=== PATIENT | male | born 1985 | race Caucasian/White ===

== ENCOUNTER 2019-12-21 14:52 | Inpatient (IN) ==
[2019-12-21 15:14] LABS: Microscopic, Urine URINE MICROSCOPIC (MICROSCOPIC)
--- NOTE | 2019-12-21 15:21 | Emergency Department Note ---
ED Disposition Clinical Impression: Severe sepsis, IV drug abuse Abscess of skin or subcutaneous tissue Qualifiers: Site of cutaneous abscess: extremity Site of cutaneous abscess of extremity: upper extremity Laterality: left Qualified Code(s): L02.414 - Cutaneous abscess of left upper limb Cellulitis Qualifiers: Site of cellulitis: extremity Site of cellulitis of extremity: upper extremity Laterality: left Qualified Code(s): L03.114 - Cellulitis of left upper limb Disposition: Admitted As Inpatient Condition on Discharge: Fair Instructions: DI for Skin Abscess Referrals: Ameya Hernandez [Primary Care Provider] - Time of Disposition: 16:51 - Critical Care Critical Care Time: No Attestation: On 12/21/19, the high probability of a clinically significant, sudden or life threatening deterioration of the following system(s) required my full and direct attention, intervention and personal management. The time I documented below is in addition to time spent performing reported procedures but includes the following listed in this critical care notation. Medical Decision Making - Joseph Inquiry Pt receiving controlled substance: No Vital Signs: 12/21/19 15:02 Temperature 98.2 F Temperature Source Oral Pulse Rate [Left Radial] 110 H Respiratory Rate 18 Blood Pressure [Right Arm] 131/68 Blood Pressure Mean [Right Arm] 89 Blood Pressure Position [Right Arm] Sitting 02 Sat by Pulse Oximetry 98 Oxygen Delivery Method Room Air - Lab Data Lab results reviewed: Yes: I reviewed the patient's lab results. Lab Results 12/21/19 14:57: Urine Color Yellow, Urine Appearance Clear, Urine pH 6.0, Ur Specific [place] <= 1.005, Urine Protein Negative, Urine Glucose (UA) Negative, Urine Ketones Negative, Urine Blood Trace-i, Urine Nitrate Negative, Urine Bilirubin Negative, Urine Urobilinogen 0.2, Ur Leukocyte Esterase Negative, Urine RBC Occasional, Urine WBC None, Ur Squamous Epith Cells Occasional, Urine Bacteria None 12/21/19 14:57: ESR 8 12/21/19 14:57: Troponin I < 0.01, C-Reactive Protein 45.1 H 12/21/19 14:57: Urine Opiates Screen Negative, Urine Methadone Screen Negative, Ur Barbituates Screen Negative, Ur Phencyclidine Scrn Negative, Ur Amphetamines Screen Negative, U Benzodiazepines Scrn Negative, Urine Cocaine Screen Negative, U Marijuana (THC) Screen Negative 12/21/19 15:05: WBC 15.6 H, RBC 4.70, Hgb 14.3, Hct 44.3, MCV 94.1 H, MCH 30.4, MCHC 32.3, RDW 14.1, Plt Count 762 H, MPV 7.9, Neut % (Auto) 80.6 H, Lymph % (Auto) 15.7, [place] % (Auto) 2.6, Eos % (Auto) 0.7, Baso % (Auto) 0.3, Neut # (Auto) 12.6 H, Lymph # (Auto) 2.5, [place] # (Auto) 0.4, Eos # (Auto) 0.1, Baso # (Auto) 0.0, Total Counted 100, Neutrophils % (Manual) 69, Lymphocytes % (Manual) 27, Atypical Lymphs % 2.0, Monocytes % (Manual) 2, Platelet Estimate Normal, RBC Morphology Normal 12/21/19 15:05: Sodium 133 L, Potassium 3.7, Chloride 93 L, Carbon Dioxide 27, Anion Gap 16.7 H, BUN 25 H, Creatinine 0.90, Estimated Creat Clear 109, Estimated GFR 95, Est GFR ( Amer) 116, Glucose 127 H, Calcium 9.4, Total Bilirubin 0.4, AST 46, ALT 73, Alkaline Phosphatase 218 H, Total Protein 9.1 H, Albumin 3.9, Globulin 5.2 H, Albumin/Globulin Ratio 0.8 L 12/21/19 15:05: Lactate 2.2 H Result diagrams: 12/21/19 15:05 12/21/19 15:05 Orders (Tests/Meds): ED MEDICATIONS Generic Name Dose Route Start Last Admin Trade Name Fausto PRN Reason Stop Dose Admin Sodium Chloride 1,000 mls @ 999 mls/hr 12/21/19 15:30 12/21/19 15:57 Sod Chlor 0.9% 1000ml Bag IV 12/21/19 16:30 999 mls/hr .Q1H1M BETTIE Administration Vancomycin HCl 1,000 mg/ 250 mls @ 125 mls/hr 12/21/19 15:34 12/21/19 15:57 Sodium Chloride IV 12/21/19 17:33 125 mls/hr ONCE ONE Administration Miscellaneous 1 each 12/21/19 15:45 Vancomycin Consult Request * 01/20/20 15:44 CONSULT PHARMACY BETTIE Discontinued Medications Generic Name Dose Route Start Last Admin Trade Name Freq PRN Reason Stop Dose Admin Ketorolac Tromethamine 30 mg 12/21/19 16:09 12/21/19 16:11 Toradol 30mg/Ml Vial IV 12/21/19 16:10 30 mg ONCE ONE Administration Vancomycin HCl 1,000 mg 12/21/19 15:19 Vancomycin 1000mg Vial IV 12/21/19 15:20 ONCE ONE Protocol ORDERS Category Date Time Status Troponin I Q3H Lab 12/21/19 18:30 Ordered Troponin I Q3H Lab 12/21/19 21:30 Ordered Blood Culture Stat Micro 12/21/19 15:05 Received Wound Culture and Gram Stain Stat Micro 12/21/19 15:50 Received EKG Request [ECG Request by /Nse] Stat Y 12/21/19 15:23 Ordered - ECG Data Tracing #1 Normal sinus rhythm with a heart rate of 93 bpm, normal P waves, normal SC interval, nonspecific ST-T changes. - Physician Consults Physician Consulted: Dr. Blankenship/Ermelinda Time: 16:49 Reason -: Admission Comment/Response: D/W EDIN Wadsworth for Dr. Blankenship, regarding the patient and planned to get the patient admitted to the floor for left antecubital abscess with IV drug use/severe sepsis. - Reevaluation(s) Time: 16:40 Reevaluation #1: Patient has been stable throughout the course of stay in the ER. Discussed the lab values and the findings with the patient. Plan to admit the patient for IV antibiotics and surgical consult and proper surgical drainage. Skin/Abscess/FB HPI - General Chief complaint: Skin/Abscess/Foreign Body Stated complaint: kidney trouble, left arm pain Time Seen by Provider: 12/21/19 15:10 Mode of Arrival: Ambulatory Source of Information: Patient Limitations: No Limitations Description of Symptoms (Recalled from ER Triage Doc. by RN): TO ED PER PVT CAR WITH C/O ABSCESS TO LT ARM AC AREA X 1 WEEK. +DRAINAGE NOTED. PT DENIES ANY FEVER, CHILLS, NAUSEA, VOMITING. PT STATES PAST IV DRUG USE STATES HAS NOT USED X 2 MONTHS. - History of Present Illness HPI narrative: 34-year-old male presents to the emergency department with chief complaint of having pain and swelling on the left antecubital area for the last 1 week. The swelling and redness has been getting worse. There was some drainage from the site but it is not getting better. History of IV drug use and the last time he used IV drugs was about 2 to 3 weeks ago. Denies having fever but complains of feeling chills. Denies having nausea or vomiting. Denies having change in mental status. MD complaint: abscess/boil (left antecubital area) Onset (ago): week(s) (1) Location: LUE Severity: severe Severity scale (1-10): 8 Quality: stabbing Consistency: intermittent Relieving factors: none, immobilization Exacerbating factors: palpation Context: IVDA Associated symptoms: chills - Related Data Home Medications Medication Instructions Recorded Confirmed No Known Home Medications 12/21/19 12/21/19 Allergies Allergy/AdvReac Type Severity Reaction Status Date / Time No Known Allergies Allergy Verified 12/21/19 16:14 [facility] History - Hepatitis A Screen Drug use history?: Yes High risk sexual behaviors?: No History of sexually transmitted infection?: No Currently employed?: No Childcare worker?: No Do you have indoor plumbing?: Yes Do you have electricity?: Yes Attestation statement:: This patient has been screened for Hepatitis A risk factors. I have reviewed the patient's past medical history: Yes - Social History Smoking Status: Current every day smoker # Packs/Day (cigarettes): 1 Alcohol Intake: never Occupational Status: other ROS Obtained: Yes All systems reviewed & no additional complaints Physical Exam - General General appearance: alert, in no apparent distress - Head Head exam: atraumatic, normocephalic, normal inspection - Eye Eye exam: Present: normal appearance, PERRL, EOMI - ENT ENT exam: Present: normal exam, normal oropharynx, mucous membranes moist, normal external ear exam - Neck Neck exam: Present: normal inspection, full ROM, trachea midline - Chest Chest inspection: Present: normal inspection, symmetric chest wall rise. Absent: tenderness - Respiratory Respiratory exam: Present: normal lung sounds bilaterally. Absent: respiratory distress - Cardiovascular Cardiovascular exam: Present: regular rate, normal rhythm. Absent: JVD - Abdominal Exam Abdominal exam: Present: soft, normal bowel sounds. Absent: distention, te nderness, guarding - Extremities Exam Extremities exam: Present: full ROM, normal capillary refill. Absent: calf tenderness - Expanded Upper Extremity Exam Left Elbow exam: Present: tenderness (Tender on the left antecubital area with 5 cm circular and 2 cm nodular swelling. Mild discharge from the area. The area is tender on palpation.), swelling (About 5 cm circular erythema with 2 cm nodular swelling on the left antecubital area. The swollen area is fluctuant. The area is tender on palpation. There is no acute drainage from the site. Mild degree of contracture on the left elbow due to this pain and swelling. Mild degree of swelling on the left elbow area. Distal pulses intact. Still range of motion is intact.) - Back Exam Back exam: Present: normal inspection, full ROM. Absent: tenderness - Neurological Exam Neurological exam: Present: alert, oriented X3, CN II-XII intact - Psychiatric Psychiatric exam: Present: normal affect, normal mood - Skin Skin exam: Present: dry, intact, normal color, erythema
[2019-12-21 15:25] LABS: Basophils % 0.3 % (0.1-2.0); Eosinophils # 0.1 K/mm3 (0.0-0.4); Eosinophils % 0.7 % (0.1-12.0); Hematocrit 44.3 % (42.0-52.0); Hemoglobin 14.3 g/dL (14.1-18.0); Lymphocytes # 2.5 K/mm3 (0.7-4.5); Lymphocytes % 15.7 % (10-50); Mean Corpuscular HGB Conc 32.3 g/dL (31.8-35.4); Mean Corpuscular Volume 94.1 fl (80-94); Mean Platelet Volume 7.9 fl (7.4-10.4); Monocytes # 0.4 K/mm3 (0.1-1.0); Monocytes % 2.6 % (1.7-9.3); Neutrophils # 12.6 K/mm3 (1.8-7.8); Neutrophils % 80.6 % (37.0-80.0); Red Cell Distribution Width 14.1 % (11.5-17.5); White Blood Count 15.6 K/mm3 (4.8-10.8)
[2019-12-21 15:25] LABS: Appearance,Urine CLEAR (Clear); Bilirubin,Urine Negative (Negative); Blood, Urine TRACE-I (Negative); Color,Urine YELLOW (Yellow); Glucose,Urine (UA) Negative (Negative); Ketones,Urine Negative (Negative); Leukocyte Esterase,Urine Negative (Negative); Protein,Urine Negative (Negative); Specific Gravity, Urine <= 1.005 (1.005-1.030); Urobilinogen,Urine 0.2 EU/dl (0.2)
[2019-12-21 15:30] LABS: Albumin Level 3.9 g/dl (3.5-5.0); Albumin/Globulin Ratio 0.8 (1.1-1.8); Anion Gap 16.7 mEq/L (5-15); Bilirubin,Total 0.4 mg/dl (0.2-1.3); Calcium 9.4 mg/dl (8.4-10.2); Globulin 5.2 g/dL (1.3-3.2); Total Protein,Serum 9.1 g/dl (6.3-8.2)
[2019-12-21 15:31] LABS: Platelet Count 762 K/mm3 (142-424)
[2019-12-21 15:35] LABS: RBC,Urine Occasional #/hpf (0-3); Squamous Epithelial Cell,Urine Occasional #/hpf (0-5)
[2019-12-21 15:40] LABS: C-Reactive Protein 45.1 mg/L (0-4)
[2019-12-21 15:41] LABS: Benzodiazepines Screen,Urine Negative ng/ml (<200)
[2019-12-21 15:41] LABS: Lymphocytes % 27 % (10-50); Monocytes % 2 % (2-9); Neutrophils % 69 % (42-76); RBC Morphology Normal; Total Cells Counted 100
[2019-12-21 15:42] LABS: Amphetamine/Metha Screen,Urine Negative ng/ml (<1000); Barbiturates Screen,Urine Negative ng/ml (<200)
[2019-12-21 15:43] LABS: Cannabinoid Screen,Urine Negative ng/ml (<50)
[2019-12-21 15:44] LABS: Cocaine Screen,Urine Negative ng/ml (<300); Methadone Screen,Urine Negative ng/ml (<300)
[2019-12-21 15:45] LABS: Opiate Screen,Urine Negative ng/ml (<300); Phencyclidine Screen,Urine Negative ng/ml (<25)
--- NOTE | 2019-12-21 17:34 | History & Physical Report ---
*Admission Date: 12/21/19 *Chief complaint: abcess *History of present illness: 34-year-old male with reported history of IV drug abuse, last use was over a month ago. He had previously, several years ago, undergone operative incision and drainage of right antecubital abscess. He presented to the emergency department yesterday with progressive enlarging left antecubital abscess. He was admitted to the medical service and surgical consult for possible I&D and iv antibiotics [facility] History I have reviewed the patient's past medical history: Yes *Have you ever received a pneumonia vaccine?: No *Have you received a flu vaccine this season?: No - *Social History Smoking Status: Current every day smoker # Packs/Day (cigarettes): 1 Alcohol Intake: never *Occupational Status:: other *Travel in the last 8 weeks: None Family Hx:: No significant family history Review of Systems - Review of Systems Review of systems:: pertinent systems reviewed and negative unless documented below - Constitutional Denies body ache(s), Denies fever(s) - Eyes Denies blurry vision - ENT Denies bleeding gums - *Cardiovascular Denies chest pain at rest - *Respiratory Denies change in phlegm color - *Gastrointestinal Denies abdominal pain - *Musculoskeletal Denies muscle cramps - Integumentary/Breasts Reports wounds, Denies unusual bruising - *Neurologic Denies abnormal hearing - Psychiatric Denies lack of enjoyment - Endocrine Denies flushing - Hematologic/Lymphatic Denies enlarged lymph nodes - Allergic/Immunologic Denies itchy eyes Meds Home Medications Medication Instructions Recorded Confirmed Type No Known Home Medications 12/21/19 12/21/19 History Allergies Allergy/AdvReac Type Severity Reaction Status Date / Time No Known Allergies Allergy Verified 12/21/19 16:14 Exam Vital signs and Labs for Last 24 Hours: Temp Pulse Resp BP Pulse Ox 97.9 F 86 16 140/77 100 12/21/19 17:29 12/21/19 17:29 12/21/19 17:12/21/19 17:12/21/19 17:29 Laboratory Results - last 24 hr 12/21/19 14:57: Urine Color Yellow, Urine Appearance Clear, Urine pH 6.0, Ur Specific [place] <= 1.005, Urine Protein Negative, Urine Glucose (UA) Negative, Urine Ketones Negative, Urine Blood Trace-i, Urine Nitrate Negative, Urine Bilirubin Negative, Urine Urobilinogen 0.2, Ur Leukocyte Esterase Negative, Urine RBC Occasional, Urine WBC None, Ur Squamous Epith Cells Occasional, Urine Bacteria None 12/21/19 14:57: ESR 8 12/21/19 14:57: Troponin I < 0.01, C-Reactive Protein 45.1 H 12/21/19 14:57: Urine Opiates Screen Negative, Urine Methadone Screen Negative, Ur Barbituates Screen Negative, Ur Phencyclidine Scrn Negative, Ur Amphetamines Screen Negative, U Benzodiazepines Scrn Negative, Urine Cocaine Screen Negative, U Marijuana (THC) Screen Negative 12/21/19 15:05: WBC 15.6 H, RBC 4.70, Hgb 14.3, Hct 44.3, MCV 94.1 H, MCH 30.4, MCHC 32.3, RDW 14.1, Plt Count 762 H, MPV 7.9, Neut % (Auto) 80.6 H, Lymph % (Auto) 15.7, [place] % (Auto) 2.6, Eos % (Auto) 0.7, Baso % (Auto) 0.3, Neut # (Auto) 12.6 H, Lymph # (Auto) 2.5, [place] # (Auto) 0.4, Eos # (Auto) 0.1, Baso # (Auto) 0.0, Total Counted 100, Neutrophils % (Manual) 69, Lymphocytes % (Manual) 27, Atypical Lymphs % 2.0, Monocytes % (Manual) 2, Platelet Estimate Normal, RBC Morphology Normal 12/21/19 15:05: Sodium 133 L, Potassium 3.7, Chloride 93 L, Carbon Dioxide 27, Anion Gap 16.7 H, BUN 25 H, Creatinine 0.90, Estimated Creat Clear 109, Estimated GFR 95, Est GFR ( Amer) 116, Glucose 127 H, Calcium 9.4, Total Bilirubin 0.4, AST 46, ALT 73, Alkaline Phosphatase 218 H, Total Protein 9.1 H, Albumin 3.9, Globulin 5.2 H, Albumin/Globulin Ratio 0.8 L 12/21/19 15:05: Lactate 2.2 H I & O for Last 24 hours: Intake & Output 12/19/19 12/20/19 12/21/19 12/22/19 11:59 11:59 11:59 11:59 Weight 140 lb 4 oz Microbiology Reports for the Last 24 Hours: Microbiology 12/21/19 15:50 Arm,Left Gram Stain - Final - *Routine HEENT Exam Head: Present: normocephalic Eye: Present: PERRL ENT: Present: mucous membranes moist - *Routine Neck Exam Present: supple. Absent: lymphadenopathy - *Routine Respiratory Exam Present: CTA bilaterally - *Routine Cardiovascular Exam Present: RRR - *Routine Abdominal Exam Present: soft, normoactive bowel sounds. Absent: tenderness - *Routine Extremities Exam Absent: cyanosis, clubbing, edema - *Routine Skin Exam Present: warm, wounds. Absent: rash Comments: lt ac redness and golf ball size induration - *Routine Neurological Exam Present: alert, oriented X3 Assessment and Plan (1) Abscess of skin or subcutaneous tissue Current visit: Yes Status: Acute Qualifiers: Site of cutaneous abscess: extremity Site of cutaneous abscess of extremity: upper extremity Laterality: left Qualified Code(s): L02.414 - Cutaneous abscess of left upper limb Category: Medical Code(s): L02.91 - Cutaneous abscess, unspecified (2) Cellulitis Current visit: Yes Status: Acute Qualifiers: Site of cellulitis: extremity Site of cellulitis of extremity: upper extremity Laterality: left Qualified Code(s): L03.114 - Cellulitis of left upper limb Category: Medical Code(s): L03.90 - Cellulitis, unspecified (3) IV drug abuse Current visit: Yes Status: Acute Category: Social Hx Code(s): F19.10 - Other psychoactive substance abuse, uncomplicated - Assessment and plan all Dx Assessment and Plan for all problems:: Dr Blankenship will rounds later today
--- NOTE | 2019-12-21 18:41 | Consult Report ---
*Admission Date: 12/21/19 *Reason for consult:: Antecubital abscess *History of present illness: Patient is a left-handed 34-year-old male with admitted history of IV drug abuse. He had a previous history of right antecubital fossa abscess which required brief hospitalization and incision and drainage by Dr. Cabrera in 2016. He presented to the emergency department with complaints of tender progressive abscess in the left antecubital area. Initially, according to the ER report, this is been present and progressive over approximately 1 week. Patient states that it has been present for, "a couple of days". He states the last time he had injected at this area was at least several weeks ago. He was seen and evaluated in the emergency department and admitted for inpatient management. Surgical consultation was ordered. Review of Systems - Review of Systems Review of systems:: pertinent systems reviewed and negative unless documented below [facility] History I have reviewed the patient's past medical history: Yes Medical History: Denies:: Cancer, Diabetes Mellitus Type 1, Diabetes Mellitus Type 2, MRSA *Have you ever received a pneumonia vaccine?: No *Have you received a flu vaccine this season?: No - *Social History Smoking Status: Current every day smoker Tobacco Type: cigarettes # Packs/Day (cigarettes): 1 Alcohol Intake: former Substance Use Type: marijuana Last Used Substance: days (ago) *Occupational Status:: unemployed Housing: house Household Members: family *Travel in the last 8 weeks: None Family Hx:: Cancer Meds Home Medications Medication Instructions Recorded Confirmed Type No Known Home Medications 12/21/19 12/21/19 History Allergies Allergy/AdvReac Type Severity Reaction Status Date / Time No Known Allergies Allergy Verified 12/21/19 16:14 Exam Vital signs and Labs for Last 24 Hours: Temp Pulse Resp BP Pulse Ox 98.2 F 85 18 135/70 100 12/21/19 18:06 12/21/19 18:06 12/21/19 18:06 12/21/19 18:06 12/21/19 17:29 Laboratory Results - last 24 hr 12/21/19 14:57: Urine Color Yellow, Urine Appearance Clear, Urine pH 6.0, Ur Specific [place] <= 1.005, Urine Protein Negative, Urine Glucose (UA) Negative, Urine Ketones Negative, Urine Blood Trace-i, Urine Nitrate Negative, Urine Bilirubin Negative, Urine Urobilinogen 0.2, Ur Leukocyte Esterase Negative, Urine RBC Occasional, Urine WBC None, Ur Squamous Epith Cells Occasional, Urine Bacteria None 12/21/19 14:57: ESR 8 12/21/19 14:57: Troponin I < 0.01, C-Reactive Protein 45.1 H 12/21/19 14:57: Urine Opiates Screen Negative, Urine Methadone Screen Negative, Ur Barbituates Screen Negative, Ur Phencyclidine Scrn Negative, Ur Amphetamines Screen Negative, U Benzodiazepines Scrn Negative, Urine Cocaine Screen Negative, U Marijuana (THC) Screen Negative 12/21/19 15:05: WBC 15.6 H, RBC 4.70, Hgb 14.3, Hct 44.3, MCV 94.1 H, MCH 30.4, MCHC 32.3, RDW 14.1, Plt Count 762 H, MPV 7.9, Neut % (Auto) 80.6 H, Lymph % (Auto) 15.7, [place] % (Auto) 2.6, Eos % (Auto) 0.7, Baso % (Auto) 0.3, Neut # (Auto) 12.6 H, Lymph # (Auto) 2.5, [place] # (Auto) 0.4, Eos # (Auto) 0.1, Baso # (Auto) 0.0, Total Counted 100, Neutrophils % (Manual) 69, Lymphocytes % (Manual) 27, Atypical Lymphs % 2.0, Monocytes % (Manual) 2, Platelet Estimate Normal, RBC Morphology Normal 12/21/19 15:05: Sodium 133 L, Potassium 3.7, Chloride 93 L, Carbon Dioxide 27, Anion Gap 16.7 H, BUN 25 H, Creatinine 0.90, Estimated Creat Clear 109, Estimated GFR 95, Est GFR ( Amer) 116, Glucose 127 H, Calcium 9.4, Total Bilirubin 0.4, AST 46, ALT 73, Alkaline Phosphatase 218 H, Total Protein 9.1 H, Albumin 3.9, Globulin 5.2 H, Albumin/Globulin Ratio 0.8 L 12/21/19 15:05: Lactate 2.2 H I & O for Last 24 hours: Intake & Output 12/19/19 12/20/19 12/21/19 12/22/19 11:59 11:59 11:59 11:59 Intake Total 240 / 240 Balance 240 / 240 Weight 140 lb 4 oz Microbiology Reports for the Last 24 Hours: Microbiology 12/21/19 15:50 Arm,Left Gram Stain - Final - *Routine HEENT Exam Head: Present: normocephalic Eye: Present: EOMI, PERRL ENT: Present: mucous membranes moist - *Routine Neck Exam Present: supple. Absent: lymphadenopathy - *Routine Respiratory Exam Present: CTA bilaterally - *Routine Cardiovascular Exam Present: RRR - *Routine Abdominal Exam Present: soft, normoactive bowel sounds. Absent: tenderness - *Routine Extremities Exam Absent: cyanosis, clubbing, edema - *Routine Skin Exam Comments: In the left antecubital region there is an area approximately 5 x 2 cm of erythema with induration. There is central fluctuance. There is some minor purulent drainage from punctate side. He has no tenderness in the biceps region. Distally extremity exam is normal with normal pulses normal range of motion. - *Routine Neurological Exam Present: alert, oriented X3 Results - Labs 12/21/19 15:05 12/21/19 15:05 Laboratory Results - last 24 hr 12/21/19 14:57: Urine Color Yellow, Urine Appearance Clear, Urine pH 6.0, Ur Specific [place] <= 1.005, Urine Protein Negative, Urine Glucose (UA) Negative, Urine Ketones Negative, Urine Blood Trace-i, Urine Nitrate Negative, Urine Bilirubin Negative, Urine Urobilinogen 0.2, Ur Leukocyte Esterase Negative, Urine RBC Occasional, Urine WBC None, Ur Squamous Epith Cells Occasional, Urine Bacteria None 12/21/19 14:57: ESR 8 12/21/19 14:57: Troponin I < 0.01, C-Reactive Protein 45.1 H 12/21/19 14:57: Urine Opiates Screen Negative, Urine Methadone Screen Negative, Ur Barbituates Screen Negative, Ur Phencyclidine Scrn Negative, Ur Amphetamines Screen Negative, U Benzodiazepines Scrn Negative, Urine Cocaine Screen Negative, U Marijuana (THC) Screen Negative 12/21/19 15:05: WBC 15.6 H, RBC 4.70, Hgb 14.3, Hct 44.3, MCV 94.1 H, MCH 30.4, MCHC 32.3, RDW 14.1, Plt Count 762 H, MPV 7.9, Neut % (Auto) 80.6 H, Lymph % (Auto) 15.7, [place] % (Auto) 2.6, Eos % (Auto) 0.7, Baso % (Auto) 0.3, Neut # ( Auto) 12.6 H, Lymph # (Auto) 2.5, [place] # (Auto) 0.4, Eos # (Auto) 0.1, Baso # (Auto) 0.0, Total Counted 100, Neutrophils % (Manual) 69, Lymphocytes % (Manual) 27, Atypical Lymphs % 2.0, Monocytes % (Manual) 2, Platelet Estimate Normal, RBC Morphology Normal 12/21/19 15:05: Sodium 133 L, Potassium 3.7, Chloride 93 L, Carbon Dioxide 27, Anion Gap 16.7 H, BUN 25 H, Creatinine 0.90, Estimated Creat Clear 109, Estimated GFR 95, Est GFR ( Amer) 116, Glucose 127 H, Calcium 9.4, Total Bilirubin 0.4, AST 46, ALT 73, Alkaline Phosphatase 218 H, Total Protein 9.1 H, Albumin 3.9, Globulin 5.2 H, Albumin/Globulin Ratio 0.8 L 12/21/19 15:05: Lactate 2.2 H Assessment and Plan - Assessment and plan all Dx Assessment and Plan for all problems:: Plan for incision and drainage under anesthesia tomorrow morning.
--- NOTE | 2019-12-21 19:07 | Electrocardiograph Report ---
APPROVED REPORT Exam: Resting ECG HR:93 bpm ECG Measurements Heart Rate 93 AXES ID 154 P 88 QRSd 92 QRS 89 QT 366 T76 QTc 455 <Conclusion> Normal sinus rhythm Poor R Wave Progression Abnormal ECG Electronically signed by : Ashok Min, 12/21/2019 19:06:29
[2019-12-22 07:06] LABS: Basophils % 0.3 % (0.1-2.0); Eosinophils # 0.1 K/mm3 (0.0-0.4); Eosinophils % 1.3 % (0.1-12.0); Hematocrit 34.8 % (42.0-52.0); Lymphocytes # 2.6 K/mm3 (0.7-4.5); Lymphocytes % 22.7 % (10-50); Mean Corpuscular HGB Conc 32.7 g/dL (31.8-35.4); Mean Corpuscular Volume 94.4 fl (80-94); Mean Platelet Volume 7.7 fl (7.4-10.4); Monocytes # 0.6 K/mm3 (0.1-1.0); Monocytes % 4.9 % (1.7-9.3); Neutrophils % 70.9 % (37.0-80.0); Red Blood Count 3.69 M/mm3 (4.60-6.20); Red Cell Distribution Width 14.1 % (11.5-17.5); White Blood Count 11.3 K/mm3 (4.8-10.8)
[2019-12-22 07:16] LABS: Hemoglobin 11.4 g/dL (14.1-18.0); Platelet Count 683 K/mm3 (142-424)
[2019-12-22 07:22] LABS: Anion Gap 10.9 mEq/L (5-15)
[2019-12-22 07:23] LABS: Calcium 8.9 mg/dl (8.4-10.2)
--- NOTE | 2019-12-22 08:33 | Pharmacy Consult Notes ---
- Pharmacy Consult Date: 12/22/19 Time: 08:32 Referring provider: DR. HENDERSON Reason for Consult:: VANCOMYCIN DOSING Allergies and ADEs:: Allergies Allergy/AdvReac Type Severity Reaction Status Date / Time No Known Allergies Allergy Verified 12/21/19 16:14 Home Medications:: Home Medications Medication Instructions Recorded Confirmed Type No Known Home Medications 12/21/19 12/21/19 History Height: 1.88 m Weight: 61.405 kg Laboratory Results:: Laboratory Results - last 24 hr 12/21/19 14:57: Urine Color Yellow, Urine Appearance Clear, Urine pH 6.0, Ur Specific [place] <= 1.005, Urine Protein Negative, Urine Glucose (UA) Negative, Urine Ketones Negative, Urine Blood Trace-i, Urine Nitrate Negative, Urine Bilir ubin Negative, Urine Urobilinogen 0.2, Ur Leukocyte Esterase Negative, Urine RBC Occasional, Urine WBC None, Ur Squamous Epith Cells Occasional, Urine Bacteria None 12/21/19 14:57: ESR 8 12/21/19 14:57: Troponin I < 0.01, C-Reactive Protein 45.1 H 12/21/19 14:57: Urine Opiates Screen Negative, Urine Methadone Screen Negative, Ur Barbituates Screen Negative, Ur Phencyclidine Scrn Negative, Ur Amphetamines Screen Negative, U Benzodiazepines Scrn Negative, Urine Cocaine Screen Negative, U Marijuana (THC) Screen Negative 12/21/19 15:05: WBC 15.6 H, RBC 4.70, Hgb 14.3, Hct 44.3, MCV 94.1 H, MCH 30.4, MCHC 32.3, RDW 14.1, Plt Count 762 H, MPV 7.9, Neut % (Auto) 80.6 H, Lymph % (Auto) 15.7, [place] % (Auto) 2.6, Eos % (Auto) 0.7, Baso % (Auto) 0.3, Neut # (Auto) 12.6 H, Lymph # (Auto) 2.5, [place] # (Auto) 0.4, Eos # (Auto) 0.1, Baso # (Auto) 0.0, Total Counted 100, Neutrophils % (Manual) 69, Lymphocytes % (Manual) 27, Atypical Lymphs % 2.0, Monocytes % (Manual) 2, Platelet Estimate Normal, RBC Morphology Normal 12/21/19 15:05: Sodium 133 L, Potassium 3.7, Chloride 93 L, Carbon Dioxide 27, Anion Gap 16.7 H, BUN 25 H, Creatinine 0.90, Estimated Creat Clear 109, Estimated GFR 95, Est GFR ( Amer) 116, Glucose 127 H, Calcium 9.4, Total Bilirubin 0.4, AST 46, ALT 73, Alkaline Phosphatase 218 H, Total Protein 9.1 H, Albumin 3.9, Globulin 5.2 H, Albumin/Globulin Ratio 0.8 L 12/21/19 15:05: Lactate 2.2 H 12/21/19 19:25: Lactate 2.1 12/21/19 19:55: Troponin I < 0.01 12/21/19 21:35: Lactate 1.5 12/22/19 02:10: Troponin I < 0.01 12/22/19 06:48: WBC 11.3 H D, RBC 3.69 L, Hgb 11.4 L D, Hct 34.8 L, MCV 94.4 H, MCH 30.9, MCHC 32.7, RDW 14.1, Plt Count 683 H, MPV 7.7, Neut % (Auto) 70.9, Lymph % (Auto) 22.7, [place] % (Auto) 4.9, Eos % (Auto) 1.3, Baso % (Auto) 0.3, Neut # (Auto) 8.0 H, Lymph # (Auto) 2.6, [place] # (Auto) 0.6, Eos # (Auto) 0.1, Baso # (Auto) 0.0 12/22/19 06:48: Sodium 141, Potassium 3.9, Chloride 108 H, Carbon Dioxide 26, Anion Gap 10.9, BUN 12 D, Creatinine 0.70 D, Estimated Creat Clear 127, Estim ated GFR 128, Est GFR ( Amer) 154 D, Glucose 109 H, Calcium 8.9 Medical History: Denies:: Cancer, Diabetes Mellitus Type 1, Diabetes Mellitus Type 2, MRSA Assessment and Plan - Assessment and plan all Dx Assessment and Plan for all problems:: BASED ON PATIENT FACTORS, RECOMMEND VANCOMYCIN 1 GM IV Q8H. WILL OBTAIN VANCOMYCIN TROUGH LEVEL PRIOR TO 4TH DOSE. PHARMACY WILL FOLLOW DAILY AND ADJUST APPROPRIATE.
--- NOTE | 2019-12-22 08:35 | Operative Note ---
Date of procedure: 12/22/19 Pre-op Diagnosis:: Left antecubital abscess Post-op Diagnosis:: Same Procedure performed:: Incision and drainage of complex left antecubital abscess Surgeon:: Anurag Power MD CIRCULAR KNIFE MACHINE CUTTER:: Ted Thurston Anesthesia: LMA Estimated blood loss (mL): 15 Clinical Note:: Patient is a 34-year-old male with reported history of IV drug abuse. He had previously, several years ago, undergone operative incision and drainage of right antecubital abscess. He presented to the emergency department yesterday with progressive enlarging left antecubital abscess. He was admitted to the medical service and surgical consultation was ordered for incision and drainage. Plan was made for incision and drainage this morning under anesthesia. Operative findings:: Patient had a rather large fluctuant abscess in the left antecubital fossa. Operative note:: Patient was taken to the operating room. He had been on therapeutic antibiotics for his infection and probable sepsis consisting of Zosyn and vancomycin. In the operating room he was placed in a supine position. General anesthesia was induced via LMA. Please note that the patient did require appreciable amount of anesthetic administration. His left upper extremity was prepped and draped in the standard surgical fashion. There was an area that was spontaneously draining. This was probed gently with a hemostat. There was a large fluctuant abscess with the largest portion of the abscess pocket being somewhat lateral to this. There is a large amount of thick pus which exuded from the wound. The overlying tissues were then opened with electrocautery incision to allow for evacuation of the underlying abscess. Antecubital vein was observed in the base of the wound. The abscess pocket was opened approximately 3-4 cm. Wound was irrigated. Local anesthetic was infiltrated consisting of 20 cc of 0.5% bupivacaine with epinephrine. The wound was packed with a saline moistened gauze and covered with clean dry sterile dressing. Condition: stable Disposition: PACU Specimens:: Cultures sent Complications:: None immediately apparent
--- NOTE | 2019-12-22 08:35 | Pharmacy Consult Notes ---
[facility] Pharmacy VTE Monitoring - Patient Demographics Admission date: 12/21/19 Report Date: 12/22/19 Time: 08:35 Allergies/Adverse Reactions: Patient Allergies No Known Allergies Allergy (Verified 12/21/19 16:14) Height: 1.88 m Weight: 61.405 kg Patient Problems: Current Active Problems Abscess of skin or subcutaneous tissue (Acute) Cellulitis (Acute) Severe sepsis (Acute) IV drug abuse (Acute) - VTE Risk Labs: VTE Related Lab Results Hgb 11.4 g/dL (14.1-18.0) L D 12/22/19 06:48 Hct 34.8 % (42.0-52.0) L 12/22/19 06:48 Plt Count 683 K/mm3 (142-424) H 12/22/19 06:48 BUN 12 mg/dl (9-20) D 12/22/19 06:48 Creatinine 0.70 mg/dl (0.66-1.25) D 12/22/19 06:48 Estimated Creat Clear 127 mL/min (50-200) 12/22/19 06:48 VTE Risk Level: Very Low Risk - Prophylaxis VTE Prophylaxis Ordered?: Yes Types of VTE Prophylaxis: TEDS Knee High Location of Applied Device: Bilateral Lower Extremeties
--- NOTE | 2019-12-22 08:37 | Progress Note ---
[facility] Anesthesia Checklist - Patient Identification Patient Identification: Arm Band, Verbal (Name & ) - Structural Data Admitted From: Inpatient Planned Operative Procedure/s: Left anticubital fossa I&D Consent for Planned Operative Procedure(s) Verified: Yes Verified Documents: Surgical Consent, History and Physical - NPO Status Verified Time NPO: 00:00 - Chart Verification Results Verified: CBC, BMP - Additional verifications Anesthesia Reactions: No - Airway Assessment C-Spine Mobility Assessed: Yes TMJ Mobility Assessed: Yes Dentition: Dentures-good fit (Upper) - Neurological Assessment Level of Consciousness: Awake, Alert, Appropriate, Follows Commands Hx Seizures: No Numbness or tingling in extremities: No - Anesthesia Plan Anesthesia Risk discussed: Yes Anesthesia Plan: Verified ASA Class: III Anesthesia Type: General [facility] History I have reviewed the patient's past medical history: Yes Medical History: Denies:: Cancer, Diabetes Mellitus Type 1, Diabetes Mellitus Type 2, MRSA *Have you ever received a pneumonia vaccine?: No *Have you received a flu vaccine this season?: No Anesthesia experience/problems:: No complications Laterality Cases: Right: Other (right AC I&D) Amputation: No Fractures: No - *Social History Smoking Status: Current every day smoker Tobacco Type: cigarettes # Packs/Day (cigarettes): 1 Alcohol Intake: former Substance Use Type: marijuana, IV drugs (Injects Oxycodone) Last Used Substance: days (ago) *Occupational Status:: unemployed Housing: house Household Members: family *Travel in the last 8 weeks: None Family Hx:: Cancer
--- NOTE | 2019-12-22 08:43 | Progress Note ---
Internal Medicine - PN: Subj *Date: 12/23/19 *Time: 06:40 Interval history: had surg this am and seen in op - discussed his ivdu and has depression related to martial issues Exam Vital signs and Labs for Last 24 Hours: Temp Pulse Resp BP Pulse Ox 98.9 F 88 17 150/84 H 98 12/22/19 08:00 12/22/19 08:00 12/22/19 08:00 12/22/19 08:00 12/22/19 08:00 Laboratory Results - last 24 hr 12/21/19 14:57: Urine Color Yellow, Urine Appearance Clear, Urine pH 6.0, Ur Specific [place] <= 1.005, Urine Protein Negative, Urine Glucose (UA) Negative, Urine Ketones Negative, Urine Blood Trace-i, Urine Nitrate Negative, Urine Bilirubin Negative, Urine Urobilinogen 0.2, Ur Leukocyte Esterase Negative, Urine RBC Occasional, Urine WBC None, Ur Squamous Epith Cells Occasional, Urine Bacteria None 12/21/19 14:57: ESR 8 12/21/19 14:57: Troponin I < 0.01, C-Reactive Protein 45.1 H 12/21/19 14:57: Urine Opiates Screen Negative, Urine Methadone Screen Negative, Ur Barbituates Screen Negative, Ur Phencyclidine Scrn Negative, Ur Amphetamines Screen Negative, U Benzodiazepines Scrn Negative, Urine Cocaine Screen Negative, U Marijuana (THC) Screen Negative 12/21/19 15:05: WBC 15.6 H, RBC 4.70, Hgb 14.3, Hct 44.3, MCV 94.1 H, MCH 30.4, MCHC 32.3, RDW 14.1, Plt Count 762 H, MPV 7.9, Neut % (Auto) 80.6 H, Lymph % (Auto) 15.7, [place] % (Auto) 2.6, Eos % (Auto) 0.7, Baso % (Auto) 0.3, Neut # (Auto) 12.6 H, Lymph # (Auto) 2.5, [place] # (Auto) 0.4, Eos # (Auto) 0.1, Baso # (Auto) 0.0, Total Counted 100, Neutrophils % (Manual) 69, Lymphocytes % (Manual) 27, Atypical Lymphs % 2.0, Monocytes % (Manual) 2, Platelet Estimate Normal, RBC Morphology Normal 12/21/19 15:05: Sodium 133 L, Potassium 3.7, Chloride 93 L, Carbon Dioxide 27, Anion Gap 16.7 H, BUN 25 H, Creatinine 0.90, Estimated Creat Clear 109, Estimated GFR 95, Est GFR ( Amer) 116, Glucose 127 H, Calcium 9.4, Total Bilirubin 0.4, AST 46, ALT 73, Alkaline Phosphatase 218 H, Total Protein 9.1 H, Albumin 3.9, Globulin 5.2 H, Albumin/Globulin Ratio 0.8 L 12/21/19 15:05: Lactate 2.2 H 12/21/19 19:25: Lactate 2.1 12/21/19 19:55: Troponin I < 0.01 12/21/19 21:35: Lactate 1.5 12/22/19 02:10: Troponin I < 0.01 12/22/19 06:48: WBC 11.3 H D, RBC 3.69 L, Hgb 11.4 L D, Hct 34.8 L, MCV 94.4 H, MCH 30.9, MCHC 32.7, RDW 14.1, Plt Count 683 H, MPV 7.7, Neut % (Auto) 70.9, Lymph % (Auto) 22.7, [place] % (Auto) 4.9, Eos % (Auto) 1.3, Baso % (Auto) 0.3, Neut # (Auto) 8.0 H, Lymph # (Auto) 2.6, [place] # (Auto) 0.6, Eos # (Auto) 0.1, Baso # (Auto) 0.0 12/22/19 06:48: Sodium 141, Potassium 3.9, Chloride 108 H, Carbon Dioxide 26, Anion Gap 10.9, BUN 12 D, Creatinine 0.70 D, Estimated Creat Clear 127, Estimated GFR 128, Est GFR ( Amer) 154 D, Glucose 109 H, Calcium 8.9 I & O for Last 24 hours: Intake & Output 12/19/19 12/20/19 12/21/19 12/22/19 11:59 11:59 11:59 11:59 Intake Total 540 / 540 Output Total 1100 / 1100 Balance -560 / -560 Weight 135 lb 6 oz Microbiology Reports for the Last 24 Hours: Microbiology 12/21/19 15:50 Arm,Left Gram Stain - Final - Constitutional no acute distress - *Routine HEENT Exam Head: Present: normocephalic Eye: Present: EOMI, PERRL ENT: Present: mucous membranes dry - *Routine Neck Exam Present: supple - *Routine Respiratory Exam Present: CTA bilaterally - *Routine Cardiovascular Exam Present: RRR. Absent: murmur - *Routine Abdominal Exam Present: soft - *Routine Extremities Exam Comments: noted abscess to upper ext - *Routine Skin Exam Comments: abscess as noted in lt antecubital - *Routine Neurological Exam Present: alert, oriented X3, CN II-XII intact - Routine Psychiatric Exam Present: depressed. Absent: suicidal ideation, auditory hallucinations, visual hallucinations, good insight Assessment and Plan (1) Depression Current visit: Yes Status: Acute Qualifiers: Depression Type: major depressive disorder Major depression recurrence: unspecified whether recurrent Active/Remission status: currently active Psychotic features: without psychotic features Category: Medical Code(s): F32.9 - Major depressive disorder, single episode, unspecified (2) C. difficile enteritis Current visit: Yes Status: Acute Category: Medical Code(s): A04.72 - Enterocolitis due to Clostridium difficile, not specified as recurrent
[2019-12-23 07:34] LABS: Basophils % 0.3 % (0.1-2.0); Eosinophils # 0.1 K/mm3 (0.0-0.4); Eosinophils % 0.5 % (0.1-12.0); Hematocrit 31.1 % (42.0-52.0); Hemoglobin 9.9 g/dL (14.1-18.0); Lymphocytes # 3.2 K/mm3 (0.7-4.5); Lymphocytes % 32.3 % (10-50); Mean Corpuscular HGB Conc 31.7 g/dL (31.8-35.4); Mean Corpuscular Volume 95.6 fl (80-94); Mean Platelet Volume 7.7 fl (7.4-10.4); Monocytes # 0.5 K/mm3 (0.1-1.0); Monocytes % 5.4 % (1.7-9.3); Neutrophils % 61.5 % (37.0-80.0); Platelet Count 551 K/mm3 (142-424); Red Blood Count 3.26 M/mm3 (4.60-6.20); Red Cell Distribution Width 14.3 % (11.5-17.5); White Blood Count 9.8 K/mm3 (4.8-10.8)
--- NOTE | 2019-12-23 07:38 | Progress Note ---
[facility] Anesthesia Record Part II Discharge Time: 09:00 Destination: Medical Surgical Department PACU nurse assessment reviewed?: Yes Patient Condition:: Good Anesthesia Complications:: None Swallowing reflex intact?: Yes Cyanosis?: No Blood Pressure: 167/81 Pulse Rate: 77 Temperature: 97.3 F Mental Status: Alert & Oriented Pain level:: 0 Nausea and/or vomitting:: None Intake, IV Amount: 0 Comments:: RR18, O2sat 98% on RA
[2019-12-23 08:14] LABS: Anion Gap 11.2 mEq/L (5-15); Calcium 8.9 mg/dl (8.4-10.2)
--- NOTE | 2019-12-23 08:14 | Progress Note ---
Subjective Narrative: Patient states that his left arm feels better. It is "sore". Exam Vital signs and Labs for Last 24 Hours: Temp Pulse Resp BP Pulse Ox 97.3 F L 77 16 167/81 H 98 12/23/19 07:38 12/23/19 07:38 12/23/19 04:00 12/23/19 07:38 12/23/19 04:00 Laboratory Results - last 24 hr 12/22/19 13:00: Stl Aeromonas (PCR) Not detected, Stl C. cayetanensis PCR Not detected, Stool Rotavirus (PCR) Not detected, Stl Adenov F 40/41 PCR Not detected, Stool Astrovirus (PCR) Not detected, Stool Campylobacter PCR Not detected, Stl C.difficile Tox PCR Detected A, Stool Cryptosporidium PCR Not detected, Stl E.coli Shiga Tox PCR Not detected, Stool E coli O157 PCR Not detected, Stl Enterotoxigenic E PCR Not detected, Stool EPEC (PCR) Not detected, Stool EAEC (PCR) Not detected, Stl E. histolytica PCR Not detected, Stool Giard ia Lamblia PCR Not detected, Stool Salmonella PCR Not detected, Stool Sapovirus (PCR) Not detected, Stl P. shigelloides PCR Not detected, Stl Shigella/EIEC PCR Not detected, St Y.enterocolitica PCR Not detected, Stool Vibrio (PCR) Not detected, Stl Vibrio cholerae PCR Not detected, Stl Norovirus GI/GII PCR Not detected 12/22/19 15:25: Vancomycin Trough 14.4 H 12/23/19 07:03: WBC 9.8, RBC 3.26 L, Hgb 9.9 L, Hct 31.1 L, MCV 95.6 H, MCH 30.3, MCHC 31.7 L, RDW 14.3, Plt Count 551 H, MPV 7.7, Neut % (Auto) 61.5, Lymph % (Auto) 32.3, [place] % (Auto) 5.4, Eos % (Auto) 0.5, Baso % (Auto) 0.3, Neut # (Auto) 6.0, Lymph # (Auto) 3.2, [place] # (Auto) 0.5, Eos # (Auto) 0.1, Baso # (Auto) 0.0 12/23/19 07:03: Sodium 140, Potassium 4.2, Chloride 109 H I & O for Last 24 hours: Intake & Output 12/20/19 12/21/19 12/22/19 12/23/19 11:59 11:59 11:59 11:59 Intake Total 540 / 540 1260 / 1260 Output Total 1100 / 1100 Balance -560 / -560 1260 / 1260 Weight 135 lb 6 oz 142 lb 6 oz Microbiology Reports for the Last 24 Hours: Microbiology 12/22/19 08:08 Arm,Left Gram Stain - Final 12/22/19 08:08 Arm,Left Wound Culture - Preliminary 12/21/19 15:50 Arm,Left Gram Stain - Final 12/21/19 15:50 Arm,Left Wound Culture - Preliminary - *Routine Skin Exam Comments: The wound is relatively clean. Erythema is somewhat improved but there is some persistent induration. Progress Note: A&P (1) Depression Status: Acute Current Visit: Yes (2) C. difficile enteritis Status: Acute Current Visit: Yes Assessment and Plan for All Diagnoses:: Continue wound care. Cultures pending. Patient does have some limited range of motion of left elbow joint secondary to the inflammatory process. I recommended he work on active range of motion.
--- NOTE | 2019-12-23 09:07 | Progress Note ---
Internal Medicine - PN: Subj *Date: 12/23/19 *Time: 09:05 Interval history: Patient laying in bed states no complaints today. Asking if he could go outside to smoke. Told patient he would have to sign an AGAINST MEDICAL ADVICE form and follow-up protocols. Exam Vital signs and Labs for Last 24 Hours: Temp Pulse Resp BP Pulse Ox 98.2 F 75 18 122/60 99 12/23/19 08:50 12/23/19 08:50 12/23/19 08:50 12/23/19 08:50 12/23/19 08:50 Laboratory Results - last 24 hr 12/22/19 13:00: Stl Aeromonas (PCR) Not detected, Stl C. cayetanensis PCR Not detected, Stool Rotavirus (PCR) Not detected, Stl Adenov F 40/41 PCR Not detected, Stool Astrovirus (PCR) Not detected, Stool Campylobacter PCR Not detected, Stl C.difficile Tox PCR Detected A, Stool Cryptosporidium PCR Not detected, Stl E.coli Shiga Tox PCR Not detected, Stool E coli O157 PCR Not detected, Stl Enterotoxigenic E PCR Not detected, Stool EPEC (PCR) Not detected, Stool EAEC (PCR) Not detected, Stl E. histolytica PCR Not detected, Stool Giardia Lamblia PCR Not detected, Stool Salmonella PCR Not detected, Stool Sapovirus (PCR) Not detected, Stl P. shigelloides PCR Not detected, Stl Shigella/EIEC PCR Not detected, St Y.enterocolitica PCR Not detected, Stool Vibrio (PCR) Not detected, Stl Vibrio cholerae PCR Not detected, Stl Norovirus GI/GII PCR Not detected 12/22/19 15:25: Vancomycin Trough 14.4 H 12/23/19 07:03: WBC 9.8, RBC 3.26 L, Hgb 9.9 L, Hct 31.1 L, MCV 95.6 H, MCH 30.3, MCHC 31.7 L, RDW 14.3, Plt Count 551 H, MPV 7.7, Neut % (Auto) 61.5, Lymph % (Auto) 32.3, [place] % (Auto) 5.4, Eos % (Auto) 0.5, Baso % (Auto) 0.3, Neut # (Auto) 6.0, Lymph # (Auto) 3.2, [place] # (Auto) 0.5, Eos # (Auto) 0.1, Baso # (Auto) 0.0 12/23/19 07:03: Sodium 140, Potassium 4.2, Chloride 109 H, Carbon Dioxide 24, Anion Gap 11.2, BUN 13, Creatinine 0.80, Estimated Creat Clear 117, Estimated GFR 109, Est GFR ( Amer) 132, Glucose 88, Calcium 8.9 I & O for Last 24 hours: Intake & Output 12/20/19 12/21/19 12/22/19 12/23/19 11:59 11:59 11:59 11:59 Intake Total 540 / 540 1260 / 1260 Output Total 1100 / 1100 Balance -560 / -560 1260 / 1260 Weight 135 lb 6 oz 142 lb 6 oz Microbiology Reports for the Last 24 Hours: Microbiology 12/21/19 15:50 Arm,Left Gram Stain - Final 12/21/19 15:50 Arm,Left Wound Culture - Preliminary Gram Positive Cocci 12/22/19 08:08 Arm,Left Gram Stain - Final 12/22/19 08:08 Arm,Left Wound Culture - Preliminary - *Routine HEENT Exam Head: Present: normocephalic Eye: Present: PERRL ENT: Present: mucous membranes moist - *Routine Neck Exam Present: supple. Absent: lymphadenopathy - *Routine Respiratory Exam Present: CTA bilaterally - *Routine Cardiovascular Exam Present: RRR - *Routine Abdominal Exam Present: soft, normoactive bowel sounds. Absent: tenderness - *Routine Extremities Exam Absent: cyanosis, clubbing, edema - *Routine Skin Exam Present: warm, wounds. Absent: rash Comments: Dressing to left AC clean dry and intact. Other scabbed scattered areas throughout arms - *Routine Neurological Exam Present: alert, oriented X3 Assessment and Plan (1) Depression Current visit: Yes Status: Acute Qualifiers: Depression Type: major depressive disorder Major depression recurrence: unspecified whether recurrent Active/Remission status: currently active Psychotic features: without psychotic features Category: Medical Code(s): F32.9 - Major depressive disorder, single episode, unspecified (2) C. difficile enteritis Current visit: Yes Status: Acute Category: Medical Code(s): A04.72 - Enterocolitis due to Clostridium difficile, not specified as recurrent (3) Abscess of skin or subcutaneous tissue Current visit: Yes Status: Acute Qualifiers: Site of cutaneous abscess: extremity Site of cutaneous abscess of extremity: upper extremity Laterality: left Qualified Code(s): L02.414 - Cutaneous abscess of left upper limb Category: Medical Code(s): L02.91 - Cutaneous abscess, unspecified (4) Severe sepsis Current visit: Yes Status: Acute Category: Medical Code(s): A41.9 - Sepsis, unspecified organism; R65.20 - Severe sepsis without septic shock - Assessment and plan all Dx Assessment and Plan for all problems:: Rounded with Dr. Blankenship all orders per Dr. Blankenship Await culture results
--- NOTE | 2019-12-23 12:02 | Pharmacy Consult Notes ---
- Pharmacy Consult Date: 12/23/19 Time: 12:01 Referring provider: DR. HENDERSON Reason for Consult:: VANCOMYCIN TROUGH LEVEL Allergies and ADEs:: Allergies Allergy/AdvReac Type Severity Reaction Status Date / Time No Known Allergies Allergy Verified 12/21/19 16:14 Home Medications:: Home Medications Medication Instructions Recorded Confirmed Type No Known Home Medications 12/21/19 12/21/19 History Height: 1.88 m Weight: 64.58 kg Laboratory Results:: Laboratory Results - last 24 hr 12/22/19 13:00: Stl Aeromonas (PCR) Not detected, Stl C. cayetanensis PCR Not detected, Stool Rotavirus (PCR) Not detected, Stl Adenov F 40/41 PCR Not detected, Stool Astrovirus (PCR) Not detected, Stool Campylobacter PCR Not detected, Stl C.difficile Tox PCR Detected A, Stool Cryptosporidium PCR Not detected, Stl E.coli Shiga Tox PCR Not detected, Stool E coli O157 PCR Not detected, Stl Enterotoxigenic E PCR Not detected, Stool EPEC (PCR) Not detected, Stool EAEC (PCR) Not detected, Stl E. histolytica PCR Not detected, Stool Giardia Lamblia PCR Not detected, Stool Salmonella PCR Not detected, Stool Sapovirus (PCR) Not detected, Stl P. shigelloides PCR Not detected, Stl Shigella/EIEC PCR Not detected, St Y.enterocolitica PCR Not detected, Stool Vibrio (PCR) Not detected, Stl Vibrio cholerae PCR Not detected, Stl Norovirus GI/GII PCR Not detected 12/22/19 15:25: Vancomycin Trough 14.4 H 12/23/19 07:03: WBC 9.8, RBC 3.26 L, Hgb 9.9 L, Hct 31.1 L, MCV 95.6 H, MCH 30.3, MCHC 31.7 L, RDW 14.3, Plt Count 551 H, MPV 7.7, Neut % (Auto) 61.5, Lymph % (Auto) 32.3, [place] % (Auto) 5.4, Eos % (Auto) 0.5, Baso % (Auto) 0.3, Neut # (Auto) 6.0, Lymph # (Auto) 3.2, [place] # (Auto) 0.5, Eos # (Auto) 0.1, Baso # (Auto) 0.0 12/23/19 07:03: Sodium 140, Potassium 4.2, Chloride 109 H, Carbon Dioxide 24, Anion Gap 11.2, BUN 13, Creatinine 0.80, Estimated Creat Clear 117, Estimated GFR 109, Est GFR ( Amer) 132, Glucose 88, Calcium 8.9 Medical History: Denies:: Cancer, Diabetes Mellitus Type 1, Diabetes Mellitus Type 2, MRSA, Seizures Assessment and Plan (1) Depression Current visit: Yes Status: Acute Qualifiers: Depression Type: major depressive disorder Major depression recurrence: unspecified whether recurrent Active/Remission status: currently active Psychotic features: without psychotic features Category: Medical Code(s): F32.9 - Major depressive disorder, single episode, unspecified (2) C. difficile enteritis Current visit: Yes Status: Acute Category: Medical Code(s): A04.72 - Enterocolitis due to Clostridium difficile, not specified as recurrent (3) Abscess of skin or subcutaneous tissue Current visit: Yes Status: Acute Qualifiers: Site of cutaneous abscess: extremity Site of cutaneous abscess of extremity: upper extremity Laterality: left Qualified Code(s): L02.414 - Cutaneous abscess of left upper limb Category: Medical Code(s): L02.91 - Cutaneous abscess, unspecified (4) Severe sepsis Current visit: Yes Status: Acute Category: Medical Code(s): A41.9 - Sepsis, unspecified organism; R65.20 - Severe sepsis without septic shock - Assessment and plan all Dx Assessment and Plan for all problems:: BASED ON PATIENT'S VANCOMYCIN TROUGH LEVEL OF 14.4 MCG/ML, RECOMMEND PATIENT CONTINUE WITH CURRENT DOSE AND INTERVAL OF VANCOMYCIN 1 GM Q8H AT THIS TIME. PHARMACY WILL FOLLOW DAILY AND ADJUST APPROPRIATE.
--- NOTE | 2019-12-23 16:54 | Consult Report ---
*Admission Date: 12/21/19 *Reason for consult:: depression *History of present illness: I saw Mr. Hdez in his room. He state that he is here for infection. States that he does not know how he got this. Denies that there was an injury to his left arm; denies that he had a scratch or anything there. Denied any drug abuse. When asked about drug abuse he states that he did get addicted to pain pills about 10 years ago. He was in an accident that left his right leg crushed; he states that he got addicted at this time. But denies any current drug use. He states that one reason he is depressed is related to going through a divorce. He states that he and his filed about 2 months ago. 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 -he will go to work; and come home and go to bed sometimes -he states that they cannot officially file for divorce for 1 year after the separation -then he states that he will be able to get a place of his own and move out of his parents house -he states that he feels the divorce is all his fault -and that he beats himself up over this often -does not want to talk about what happened with his marriage -he does have panic attacks -states that he gets in his own head -this will send him into panic -he does use music to help calm back down MMSE Examination reveals patient to have no apparent serious mental status abnormalities. Patient is normal in appearance with age appropriate dress and grooming and appears to be stated age. Speech is normal in rate, volume, and articulation and language skills are intact. Patient convincingly denies suicidal and self injurious ideas or intentions. Homicidal or assaultive ideas or intentions are also denied. Hallucinations and delusions are denied and behavior is generally appropriate. Associations are intact, thinking is basically logical and thought content is appropriate. There are no signs of cognitive difficulty, based on vocabulary and fund of knowledge. Memory is intact for recent and remote events and the patient is oriented to time, place, and person. There are no apparent signs of anxiety. A normal attention span is in evidence and patient exhibits no signs of hyperactivity. Insight and judgment appear intact. RECOMMENDATIONS: 1. Start Prozac 20mg daily for depression and anxiety. I did talk to him about potential side effects of this drug. 2. Follow up with psychiatric services at the specialty clinic in 1 month; given appointment date and time to RN on the floor today. TIME IN: 1315 TIME OUT: 1345 [facility] History Medical History: Denies:: Cancer, Diabetes Mellitus Type 1, Diabetes Mellitus Type 2, MRSA, Seizures *Have you ever received a pneumonia vaccine?: No *Have you received a flu vaccine this season?: No Anesthesia experience/problems:: No complications Laterality Cases: Right: Other (right AC I&D) Amputation: No Fractures: No - *Social History Smoking Status: Current every day smoker Tobacco Type: cigarettes # Packs/Day (cigarettes): 1 Alcohol Intake: former Substance Use Type: marijuana, IV drugs (Injects Oxycodone) Last Used Substance: days (ago) *Occupational Status:: unemployed Housing: house Household Members: family *Travel in the last 8 weeks: None Family Hx:: No significant family history Review of Systems - *Neurologic Denies abnormal hearing Meds Home Medications Medication Instructions Recorded Confirmed Type No Known Home Medications 12/21/19 12/21/19 History Allergies Allergy/AdvReac Type Severity Reaction Status Date / Time No Known Allergies Allergy Verified 12/21/19 16:14 Exam Vital signs and Labs for Last 24 Hours: Temp Pulse Resp BP Pulse Ox 98.9 F 69 16 145/81 H 98 12/23/19 12:00 12/23/19 12:00 12/23/19 12:00 12/23/19 12:00 12/23/19 12:00 Laboratory Results - last 24 hr 12/22/19 13:00: Stl Aeromonas (PCR) Not detected, Stl C. cayetanensis PCR Not detected, Stool Rotavirus (PCR) Not detected, Stl Adenov F 40/41 PCR Not detected, Stool Astrovirus (PCR) Not detected, Stool Campylobacter PCR Not detected, Stl C.difficile Tox PCR Detected A, Stool Cryptosporidium PCR Not detected, Stl E.coli Shiga Tox PCR Not detected, Stool E coli O157 PCR Not detected, Stl Enterotoxigenic E PCR Not detected, Stool EPEC (PCR) Not detected, Stool EAEC (PCR) Not detected, Stl E. histolytica PCR Not detected, Stool Giardia Lamblia PCR Not detected, Stool Salmonella PCR Not detected, Stool Sa povirus (PCR) Not detected, Stl P. shigelloides PCR Not detected, Stl Shigella/EIEC PCR Not detected, St Y.enterocolitica PCR Not detected, Stool Vibrio (PCR) Not detected, Stl Vibrio cholerae PCR Not detected, Stl Norovirus GI/GII PCR Not detected 12/23/19 07:03: WBC 9.8, RBC 3.26 L, Hgb 9.9 L, Hct 31.1 L, MCV 95.6 H, MCH 30.3, MCHC 31.7 L, RDW 14.3, Plt Count 551 H, MPV 7.7, Neut % (Auto) 61.5, Lymph % (Auto) 32.3, [place] % (Auto) 5.4, Eos % (Auto) 0.5, Baso % (Auto) 0.3, Neut # (Auto) 6.0, Lymph # (Auto) 3.2, [place] # (Auto) 0.5, Eos # (Auto) 0.1, Baso # (Auto) 0.0 12/23/19 07:03: Sodium 140, Potassium 4.2, Chloride 109 H, Carbon Dioxide 24, Anion Gap 11.2, BUN 13, Creatinine 0.80, Estimated Creat Clear 117, Estimated GFR 109, Est GFR ( Amer) 132, Glucose 88, Calcium 8.9 I & O for Last 24 hours: Intake & Output 12/21/19 12/22/19 12/23/19 12/24/19 11:59 11:59 11:59 11:59 Intake Total 540 / 540 1620 / 1620 Output Total 1100 / 1100 Balance -560 / -560 1620 / 1620 Weight 135 lb 6 oz 142 lb 6 oz Microbiology Reports for the Last 24 Hours: Microbiology 12/21/19 15:05 Blood Blood Culture - Preliminary NO GROWTH AFTER 48 HOURS 12/21/19 15:05 Blood Blood Culture - Preliminary NO GROWTH AFTER 48 HOURS 12/22/19 08:08 Arm,Left Gram Stain - Final 12/22/19 08:08 Arm,Left Abscess Culture - Preliminary NO GROWTH AFTER 24 HOURS 12/21/19 15:50 Arm,Left Gram Stain - Final 12/21/19 15:50 Arm,Left Wound Culture - Preliminary Gram Positive [facility] - CN: Reslt - Labs CBC & Chem 7: 12/23/19 07:03 12/23/19 07:03 Labs: Short CBC 12/23/19 Range/Units 07:03 WBC 9.8 (4.8-10.8) K/mm3 Hgb 9.9 L (14.1-18.0) g/dL Hct 31.1 L (42.0-52.0) % Plt Count 551 H (142-424) K/mm3 BMP 12/23/19 07:03 Sodium 140 Potassium 4.2 Chloride 109 H Carbon Dioxide 24 BUN 13 Creatinine 0.80 Glucose 88 Calcium 8.9 Assessment and Plan (1) Depression Current visit: Yes Status: Acute Qualifiers: Depression Type: major depressive disorder Major depression recurrence: unspecified whether recurrent Active/Remission status: currently active Psychotic features: without psychotic features Category: Medical Code(s): F32.9 - Major depressive disorder, single episode, unspecified (2) C. difficile enteritis Current visit: Yes Status: Acute Category: Medical Code(s): A04.72 - Enterocolitis due to Clostridium difficile, not specified as recurrent (3) Abscess of skin or subcutaneous tissue Current visit: Yes Status: Acute Qualifiers: Site of cutaneous abscess: extremity Site of cutaneous abscess of extremity: upper extremity Laterality: left Qualified Code(s): L02.414 - Cutaneous abscess of left upper limb Category: Medical Code(s): L02.91 - Cutaneous abscess, unspecified (4) Severe sepsis Current visit: Yes Status: Acute Category: Medical Code(s): A41.9 - Sepsis, unspecified organism; R65.20 - Severe sepsis without septic shock
[2019-12-24 05:17] LABS: Hepatitis B Surface Antigen Negative (Negative)
[2019-12-24 06:13] LABS: Basophils # 0.1 K/mm3 (0-0.2); Basophils % 0.5 % (0.1-2.0); Eosinophils # 0.2 K/mm3 (0.0-0.4); Eosinophils % 1.7 % (0.1-12.0); Hematocrit 33.6 % (42.0-52.0); Hemoglobin 10.8 g/dL (14.1-18.0); Lymphocytes # 3.4 K/mm3 (0.7-4.5); Lymphocytes % 36.5 % (10-50); Mean Corpuscular HGB Conc 32.1 g/dL (31.8-35.4); Mean Corpuscular Volume 95.1 fl (80-94); Mean Platelet Volume 8.3 fl (7.4-10.4); Monocytes # 0.5 K/mm3 (0.1-1.0); Monocytes % 5.1 % (1.7-9.3); Neutrophils # 5.2 K/mm3 (1.8-7.8); Neutrophils % 56.1 % (37.0-80.0); Platelet Count 607 K/mm3 (142-424); Red Blood Count 3.54 M/mm3 (4.60-6.20); Red Cell Distribution Width 14.2 % (11.5-17.5); White Blood Count 9.3 K/mm3 (4.8-10.8)
[2019-12-24 06:59] LABS: Anion Gap 13.1 mEq/L (5-15); Calcium 9.2 mg/dl (8.4-10.2)
--- NOTE | 2019-12-24 09:13 | Discharge Summary ---
General - General Admission date:: 12/21/19 Discharge date: 12/24/19 HPI HPI: 34-year-old male patient sitting up in bed. Dressing intact to left AC clean dry and intact. Discussed discharge today he is agreeable to this 34-year-old male with reported history of IV drug abuse, last use was over a month ago. He had previously, several years ago, undergone operative incision and drainage of right antecubital abscess. He presented to the emergency department yesterday with progressive enlarging left antecubital abscess. He was admitted to the medical service and surgical consult for possible I&D and iv antibiotics Hospital Course Hospital Course: 34-year-old male with reported history of IV drug abuse, last use was over a month ago. He had previously, several years ago, undergone operative incision and drainage of right antecubital abscess. He presented to the emergency department yesterday with progressive enlarging left antecubital abscess. He was admitted to the medical service and surgical consult for possible I&D and iv antibiotics Surgery was consulted and patient was taken to the OR for I&D of left AC. [facility] will follow patient for dressing changes. Left AC wound culture was positive for Strep Pyogenes. He also tested positive for C. difficile. During his stay he has been on Zosyn and vancomycin IV. On admission white count was 15.6 now 9.3. Mental health has seen: RECOMMENDATIONS: 1. Start Prozac 20mg daily for depression and anxiety. I did talk to him about potential side effects of this drug. 2. Follow up with psychiatric services at the specialty clinic in 1 month; given appointment date and time to RN on the floor today. Objective Vital signs: Temp Pulse Resp BP Pulse Ox 98.3 F 80 16 145/80 H 100 12/24/19 08:00 12/24/19 08:00 12/24/19 08:00 12/24/19 08:00 12/24/19 08:00 no acute distress - *Routine HEENT Exam Head: Present: normocephalic, atraumatic. Absent: tenderness of temporal artery Eye: Present: EOMI, PERRL, normal accommodation. Absent: conjunctival icterus, periorbital tenderness ENT: Present: mucous membranes moist. Absent: sinus tenderness - *Routine Neck Exam Present: supple, full ROM, trachea midline. Absent: JVD, tracheal deviation - *Routine Respiratory Exam Present: CTA bilaterally. Absent: accessory muscle use - *Routine Cardiovascular Exam Present: RRR - *Routine Abdominal Exam Present: soft, normoactive bowel sounds. Absent: tenderness, firm - *Routine Extremities Exam Present: full ROM. Absent: pulses intact, calf tenderness - Routine Back/Spine/Pelvis Exam Back/Spine: Present: full ROM. Absent: CVA tenderness - *Routine Skin Exam Present: wounds. Absent: cyanosis Comments: Drsg C/D/I L AC - *Routine Neurological Exam Present: alert, oriented X3, CN II-XII intact. Absent: pronator drift - Routine Psychiatric Exam Present: normal affect, normal thought process. Absent: suicidal ideation, homicidal ideation Results Labs on day of discharge: Labs from last 24 hours 12/24/19 12/24/19 05:55 05:55 WBC 9.3 RBC 3.54 L Hgb 10.8 L Hct 33.6 L MCV 95.1 H MCH 30.6 MCHC 32.1 RDW 14.2 Plt Count 607 H MPV 8.3 Neut % (Auto) 56.1 Lymph % (Auto) 36.5 [place] % (Auto) 5.1 Eos % (Auto) 1.7 Baso % (Auto) 0.5 Neut # (Auto) 5.2 Lymph # (Auto) 3.4 [place] # (Auto) 0.5 Eos # (Auto) 0.2 Baso # (Auto) 0.1 Sodium 142 Potassium 4.1 Chloride 108 H Carbon Dioxide 25 Anion Gap 13.1 BUN 10 Creatinine 0.70 Estimated Creat Clear 136 Estimated GFR 128 Est GFR ( Amer) 154 Glucose 83 Calcium 9.2 Preliminary micro results at discharge 12/21/19 15:50 Wound Culture - Preliminary Arm,Left Strep pyogenes (grp a) 12/21/19 15:05 Blood Culture - Preliminary Blood NO GROWTH AFTER 48 HOURS 12/21/19 15:05 Blood Culture - Preliminary Blood NO GROWTH AFTER 48 HOURS 12/22/19 08:08 Abscess Culture - Preliminary Arm,Left NO GROWTH AFTER 24 HOURS - Additional Comments Rounded with Dr. Blankenship, all orders per Dr. Blankenship 1. We will discharge home today 2. He is with home health for dressing change 3. Flagyl 500 mg 3 times daily x8 days 4. Keflex 500 mg 3 times daily x5 days 5. Clindamycin 300 mg 3 times daily x5 days 6. Follow-up in office in 2 weeks DS: Diagnosis - Discharge Diagnosis (1) Depression Status: Acute (2) C. difficile enteritis Status: Acute (3) Abscess of skin or subcutaneous tissue Status: Acute (4) Severe sepsis Status: Acute Discharge Plan - Patient Discharge Instructions ACTIVITY: Continue current activity DIET: continue same diet Patient Instructions: DI for Cellulitis -- Adult, Incision and Drainage of a Skin Abscess, DI for Surgical Site Infection, DI for Sepsis -- Adult, DI for Skin Abscess, DI for Clostridium difficile Infection - Follow up Plan Follow up with: Radha Willis APRN [Nurse Practitioner] - 01/20/20 1:00 pm Rommel Pham APRN [Advanced Practice Nurse] - 2 weeks Home Medications: Home Medications Medication Instructions Recorded Confirmed Type Fluoxetine HCl [Prozac 20mg 20 mg PO DAILY 30 Days #30 cap 12/24/19 Rx Capsule] cephALEXin [cephALEXin 500mg 500 mg PO TID 5 Days #15 cap 12/24/19 Rx capsule*] clindamycin HCL [Clindamycin HCl 300 mg PO Q8 5 Days #15 cap 12/24/19 Rx 300mg Cap] metroNIDAZOLE [metroNIDAZOLE 500mg 500 mg PO TID 8 Days #24 tab 12/24/19 Rx Tablet] Prescriptions/Medication Reconciliation: New cephALEXin [cephALEXin 500mg capsule*] 500 mg PO TID 5 Days #15 cap clindamycin HCL [Clindamycin HCl 300mg Cap] 300 mg PO Q8 5 Days #15 cap metroNIDAZOLE [metroNIDAZOLE 500mg Tablet] 500 mg PO TID 8 Days #24 tab Fluoxetine HCl [Prozac 20mg Capsule] 20 mg PO DAILY 30 Days #30 cap - Problem Reconciliation Problems Reviewed?: Yes
[2019-12-24 13:07] LABS: Hepatitis C Antibody >11.0 s/co ratio (0.0-0.9)
== END 2019-12-24 11:44 | disposition home or self-care (01) | DRG 602 ==
LOC: ER 14:52 → 2ND 14:52 → OBSVTOIN 17:09 → 2ND 17:10
PROVIDERS: ADMIT Emergency Medicine; ATTEND Emergency Medicine
CPT/HCPCS: 36415; 80048; 80053; 80074; 80202; 80305; 81001; 83605; 84484; 85007; 85025; 85651; 86140; 87040; 87070; 87075; 87077; 87186; 87205; 87507; 93005; 96365; 96366; 96367; 96375; 99282; G0378; J0131; J2405; J2543; J3370

== ENCOUNTER → 2019-12-30 17:02 | Outpatient (CLI) | payer MEDICAID, SELFPAY ==
[2019-12-30 17:57] LABS: Basophils # 0.1 K/mm3 (0-0.2); Basophils % 0.5 % (0.1-2.0); Eosinophils # 0.2 K/mm3 (0.0-0.4); Eosinophils % 1.8 % (0.1-12.0); Hemoglobin 10.9 g/dL (14.1-18.0); Lymphocytes # 3.3 K/mm3 (0.7-4.5); Lymphocytes % 25.4 % (10-50); Mean Corpuscular HGB Conc 32.1 g/dL (31.8-35.4); Mean Corpuscular Volume 96.7 fl (80-94); Monocytes # 0.8 K/mm3 (0.1-1.0); Monocytes % 5.9 % (1.7-9.3); Neutrophils # 8.6 K/mm3 (1.8-7.8); Neutrophils % 66.5 % (37.0-80.0); Platelet Count 640 K/mm3 (142-424); Red Blood Count 3.51 M/mm3 (4.60-6.20); Red Cell Distribution Width 15.3 % (11.5-17.5); White Blood Count 12.9 K/mm3 (4.8-10.8)
[2019-12-30 18:51] LABS: Chloride 100 mmol/L (98-107); Potassium 4.2 mmoL/L (3.5-5.1); Sodium 138 mmol/L (136-145)
[2019-12-30 18:54] LABS: Alanine Aminotransferase 35 U/L (12-78); Albumin Level 3.6 g/dl (3.5-5.0); Albumin/Globulin Ratio 1.1 (1.1-1.8); Alkaline Phosphatase 92 U/L (38-126); Anion Gap 11.2 mEq/L (5-15); Aspartate Amino Transferase 28 U/L (17-59); Blood Urea Nitrogen 5 mg/dl (9-20); Calcium 9.2 mg/dl (8.4-10.2); Carbon Dioxide 31 mmol/L (22.0-30.0); Estimated Glomerular Filt Rate 128 ml/min (>60); GFR (African American) 154 ML/MIN (>60); Globulin 3.2 g/dL (1.3-3.2); Glucose 80 mg/dl (74-100); Total Protein,Serum 6.8 g/dl (6.3-8.2)
[2019-12-30 18:57] LABS: Bilirubin,Total < 0.1 mg/dl (0.2-1.3)
== END ==
PROVIDERS: Visit Provider Emergency Medicine
DX: L02.91 Cutaneous abscess, unspecified (principal)
CPT/HCPCS: 80053; 85025

== ENCOUNTER → 2020-01-02 17:40 | Outpatient (CLI) | payer MEDICAID, SELFPAY ==
[2020-01-04 17:41] LABS: Peripheral Smear Review Scanned Result
== END ==
PROVIDERS: Visit Provider Physician Assistant
DX: D64.9 Anemia, unspecified (principal)
CPT/HCPCS: 36415